=== PATIENT | male | born 1990 | race Caucasian/White ===

== ENCOUNTER 2016-12-01 22:34 | Emergency (ER) | payer BC ==
[~2016-12-01] VITALS: Ht 175.3 cm; Wt 84.2 kg
[2016-12-01 23:23] LABS: ADD MIUA? NO; BILIRUBIN NEGATIVE; BLOOD NEGATIVE; COLOR YELLOW ((YELLOW)); GLUCOSE (STRIP) NEGATIVE; KETONES NEGATIVE; LEUKOCYTES NEGATIVE; NITRITE NEGATIVE; PROTEIN (STRIP) NEGATIVE; SPECIFIC GRAVITY 1.028 (1.000-1.030); UCUL ADDED? NO; UROBILINOGEN 0.2 MG/DL (0.2-1.0)
[2016-12-01] MEDS ORDERED: INDOCIN50 MG PO (23:39)
[2016-12-01 23:53] VITALS: BP 137/94
== END 2016-12-01 23:54 | disposition home or self-care (01) ==
LOC: EME 22:34
DX: N50.811 Right testicular pain (principal)
CPT/HCPCS: 76870; 81003; 93975; 99281; 99284